=== PATIENT | female | born 1970 | race Hispanic/Latino ===

== ENCOUNTER 2018-04-18 08:59 | Observation (INO) | payer BC, OTHER ==
[~2018-04-18] VITALS: Ht 152.4 cm; Wt 59.0 kg
[2018-04-18] MEDS ORDERED: NAPROXEN500 MG PO (09:22)
[2018-04-18] MEDS ORDERED: METOPROLOL SUCC25 MG PO (09:22)
[2018-04-18] MEDS ORDERED: ALPRAZOLAM0.5 MG PO (09:22)
[2018-04-18] MEDS ORDERED: AMLODIPINE BESY10 MG PO (09:22)
[2018-04-18] MEDS ORDERED: ARMOUR THYROID90 MG PO (09:22)
[2018-04-18] MEDS ORDERED: SODIUM CHLORIDE 0.9% 1000ML 1,000 ML IV STA (09:39)
[2018-04-18] MEDS ORDERED: METOPROLOL TARTRATE INJ 1 MG/ML VIAL IV STA (09:39)
[2018-04-18 09:54] LABS: BASOPHILS % 0.4 % (0.0-1.0); EOSINOPHILS # (AUTO) 0.1 (0.0-0.4); EOSINOPHILS % 0.7 % (0.0-6.0); HEMATOCRIT 40.7 % (34.2-44.1); HEMOGLOBIN 14.1 g/dL (12.0-16.0); LYMPHOCYTES # (AUTO) 1.8 (1.0-3.2); LYMPHOCYTES % 19.2 % (18.0-39.1); MEAN CORPUSCULAR HEMOGLOBIN 31.3 pg (28-32); MEAN CORPUSCULAR HGB CONC 34.6 g/dL (31-35); MEAN CORPUSCULAR VOLUME 90.2 fL (81-99); MONOCYTES # (AUTO) 0.9 (0.2-0.8); MONOCYTES % 9.6 % (4.4-11.3); NEUTROPHILS # (AUTO) 6.5 (2.1-6.9); NEUTROPHILS % 69.3 % (38.7-80.0); PLATELET COUNT 270 x10e3/uL (140-360); RED BLOOD COUNT 4.51 x10e6/uL (3.6-5.1); RED CELL DISTRIBUTION WIDTH 12.2 % (11.7-14.4)
[2018-04-18 10:05] LABS: ALANINE AMINOTRANSFERASE 35 IU/L (0-55); ALBUMIN 4.4 g/dL (3.5-5.0); ALBUMIN/GLOBULIN RATIO 1.1 (0.8-2.0); ALKALINE PHOSPHATASE 92 IU/L (40-150); ANION GAP 17.6 mmol/L (8-16); BLOOD UREA NITROGEN 14 mg/dL (7-26); BUN/CREATININE RATIO 17 (6-25); CALCIUM 9.9 mg/dL (8.4-10.2); CARBON DIOXIDE 23 mmol/L (22-29); CHLORIDE 102 mmol/L (98-107); CREATINE KINASE 55 IU/L (29-168); CREATININE, SERUM 0.81 mg/dL (0.57-1.11); EST GLOMERULAR FILTRATION RATE > 60 ML/MIN (60-); GLUCOSE 88 mg/dL (74-118); POTASSIUM 3.6 mmol/L (3.5-5.1); SODIUM 139 mmol/L (136-145)
[2018-04-18 10:07] LABS: INR 1.05; PROTHROMBIN TIME 12.9 seconds (11.9-14.5)
[2018-04-18 10:08] LABS: PARTIAL THROMBOPLASTIN TIME 26.4 seconds (23.8-35.5)
[2018-04-18 10:25] LABS: FREE T4 (FREE THYROXINE) 1.05 ng/dL (0.9-1.8); THYROID STIMULATING HORMONE 4.425 uIU/mL (0.350-4.940)
--- NOTE | 2018-04-18 11:15 | Diagnostic Imaging Report ---
PROCEDURE: Frontal and lateral views of the chest. COMPARISON: None. INDICATIONS: CHEST PAIN FINDINGS: Lines/tubes: None. Lungs: The lungs are well inflated and clear. There is no evidence of pneumonia or pulmonary edema. Pleura: There is no pleural effusion or pneumothorax. Heart and mediastinum: The heart and the mediastinum are normal. Bones: No acute bony abnormality. IMPRESSION: 1. No acute cardiopulmonary disease. Dictated by: Joshua Gamboa M.D. on 04/18/2018 at 11:20 Electronically approved by: Joshua Gamboa M.D. on 04/18/2018 at 11:20
[2018-04-18] MEDS ORDERED: ASPIRIN 81 MG CHEW TAB PO ONE (13:00)
[2018-04-18] MEDS ORDERED: ALPRAZOLAM 0.5 MG TAB PO PRN ×3 (13:00→20:00)
[2018-04-18] MEDS ORDERED: SODIUM CHLORIDE 0.9% 1000ML 1,000 ML IV SCH (13:00)
[2018-04-18] MEDS ORDERED: METOPROLOL TARTRATE INJ 1 MG/ML VIAL IV PRN ×2 (13:00→20:15)
[2018-04-18 14:58] VITALS: BP 133/79
[2018-04-18] MEDS ORDERED: ASPIRIN81 MG PO (15:03)
--- NOTE | 2018-04-18 15:18 | Consultation ---
REFERRING PHYSICIAN: Dr. Kraig Banda, emergency department. DATE OF CONSULTATION: REASON FOR ADMISSION: Palpitations and chest pain. HISTORY OF PRESENT ILLNESS: Ms. Roe is a 48-year-old woman with dyslipidemia and mitochondrial mutation with previous evaluation in clinic. She has had occasional palpitations and atypical chest pain with evaluation done in the past. She presents with diarrhea and decreased p.o. intake this past week associated with increased frequency of palpitation multiple times per hour. Denies any lightheadedness or syncope. Denies any dyspnea. However, has noted associated chest pain which is described as moderate in severity and retrosternal, not radiating, lasting seconds at a time, recurrent and unaffected by exercise, meals or position. Given history of mitochondrial disorder with concern for possible cardiomyopathic crisis, she is being placed under observation at [facility] for the following 24 to 48 hours pending clinical response. When initially seen in the emergency department, she was quite tachycardiac into the 140s, sinus tachycardia at that time. On telemetry frequent PACs are observed. After administration of beta butch in the ER, her heart rate has improved to 80s to 100s, again with frequent PACs observed on the monitor. Twelve system review negative except for as noted above. ALLERGIES: SULFA AND LEVOFLOXACIN. PAST MEDICAL HISTORY: As per HPI. FAMILY HISTORY: Significant for mitochondrial disorder, unspecified, dyslipidemia and hypertension. SOCIAL HISTORY: No smoking, alcohol or drugs. PHYSICAL EXAM: VITAL SIGNS: Temperature 97.9, heart rate 101, respiratory rate 18, blood pressure 121/80, O2 sat 99% on room air. GENERAL: In no acute distress, alert. NECK: No JVD. CHEST: Clear to auscultation . CARDIOVASCULAR: Regular rate and rhythm. Normal S1 and S2. No S3, no S4 and no murmurs or rubs. ABDOMEN: Soft and nontender, nondistended. EXTREMITIES: No cyanosis, clubbing or edema. CARDIOVASCULAR MEDICATIONS: Reviewed and on thyroid supplementation, Xanax, metoprolol and amlodipine. LABS: Reviewed. White blood cells 9.4, hemoglobin 14.1, platelets 270,000. INR 1.05, PTT 26, PT 12.9. D-dimer normal at 0.25. Sodium 139, potassium 3.9, chloride 102, bicarbonate 23, BUN 14, creatinine 0.8, glucose 88, calcium 9.9, total bilirubin 1.7, mildly elevated. AST 22, ALT 35, alkaline phosphatase 92, CK 55, CK-MB 0.5. Troponin I less than 0.001. BNP 12.1. Total protein 8.4, albumin 4.4. TSH 4.4. Free T4 at 1.05. ASSESSMENT: 1. Frequent premature atrial contractions. 2. 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 3. Hypertension and dyslipidemia. 4. Gastroenteritis. RECOMMENDATIONS: 1. IV fluids. Increase beta butch availability p.r.n. and continue with current scheduled dose. 2. Avoid certain medications that have been associated with increased incidence of decompensated mitochondrial crisis including statins, metformin, limit alternative medication use at this point. 3. Keep on telemetry monitoring. 4. Obtain echocardiogram and serial cardiac enzymes. Job#: [id number] BALDO
[2018-04-18 15:34] VITALS: BP 133/79
[2018-04-18 15:35] VITALS: BP 133/79
[2018-04-18] MEDS ORDERED: ENOXAPARIN SOD INJ 40 MG/0.4 ML SYR SC SCH (17:00)
[2018-04-18 18:06] LABS: CREATINE KINASE MB 0.6 ng/mL (0-5.0)
[2018-04-18 19:20] VITALS: BP 124/80
[2018-04-18] MEDS: SODIUM CHLORIDE 0.9% 1000ML 1,000 ML IV SCH (20:00)
[2018-04-18 20:06] VITALS: BP 124/80
[2018-04-19] VITALS (10 sets, daily range): BP systolic 100–137; BP diastolic 61–79
[2018-04-19] MEDS: SODIUM CHLORIDE 0.9% 1000ML 1,000 ML IV SCH ×3 (01:02→19:57)
[2018-04-19 02:41] LABS: CREATINE KINASE MB 0.6 ng/mL (0-5.0)
[2018-04-19] MEDS: THYROID 60 MG TAB PO SCH (06:06)
[2018-04-19 06:29] LABS: ALANINE AMINOTRANSFERASE 22 IU/L (0-55); ALBUMIN 3.1 g/dL (3.5-5.0); ALBUMIN/GLOBULIN RATIO 1.1 (0.8-2.0); ALKALINE PHOSPHATASE 63 IU/L (40-150); ANION GAP 10.7 mmol/L (8-16); BLOOD UREA NITROGEN 7 mg/dL (7-26); BUN/CREATININE RATIO 11 (6-25); CARBON DIOXIDE 24 mmol/L (22-29); CHLORIDE 106 mmol/L (98-107); CHOL/HDL RATIO 2.6 (3.0-3.6); CHOLESTEROL 169 MD/DL (0-199); CREATININE, SERUM 0.66 mg/dL (0.57-1.11); EST GLOMERULAR FILTRATION RATE > 60 ML/MIN (60-); GLUCOSE 82 mg/dL (74-118); HDL CHOLESTEROL 65 MG/DL (40-60); LDL CHOLESTEROL 95 MG/DL (60-130); POTASSIUM 3.7 mmol/L (3.5-5.1); SODIUM 137 mmol/L (136-145); TRIGLYCERIDES 45 MG/DL (0-149)
[2018-04-19 06:34] LABS: CREATINE KINASE 52 IU/L (29-168)
--- NOTE | 2018-04-19 07:48 | History and Physical ---
PRIMARY CARE PHYSICIAN: Dr. Diggs CHIEF COMPLAINT: Chest palpitations. 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 Chest discomfort described by chest pressure, but no shortness of breath or dizziness. Due to history of mitochondrial trait with a predisposition to cardiomyopathy with chest discomfort did manifest. The patient decided to come to the hospital. She was admitted for further evaluation and management. The patient had an echocardiogram in 2017, which she states was normal. The patient did have an episode of diarrhea. 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 PAST SURGICAL HISTORY: Cholecystectomy, carpal tunnel release surgery, , partial hysterectomy. ALLERGIES: PER ELECTRONIC MEDICAL RECORD. FAMILY HISTORY/SOCIAL HISTORY: Patient is . She has 1 child. No alcohol, illicits or cigarettes. MEDICATIONS: Per electronic medical record. REVIEW OF SYSTEMS: Denies any dizziness, fever, chills, sweats, nausea, vomiting, diarrhea, headache, blurred vision, leg pain. PHYSICAL EXAMINATION VITAL SIGNS: Reviewed. GENERAL: A tired-appearing woman resting in bed. HEENT: Anicteric. Pupils respond to light. No oral lesions. CARDIOVASCULAR: Normal S1 and S2. LUNGS: Moderate breath sounds. ABDOMEN: Soft and nondistended. She has tenderness in the epigastrium. She also has tenderness in the midchest wall. EXTREMITIES: No edema or calf tenderness. NEUROLOGICAL: Alert and oriented times 3. Moving all extremities. LABS: Reviewed. MEDICATIONS: Reviewed. ASSESSMENT: A 48-year-old woman with: 1. Chest pain. 2. Hyperlipidemia. 3. Chest palpitations. 4. Acute gastroenteritis. 5. Hyperbilirubinemia. 6. Hypertension. 7. Anxiety disorder. 8. Hypothyroidism. PLAN 1. Cardiac enzymes negative times 3. Follow up echocardiogram. 2. Continue supportive care and IV rehydration. 3. Continue Lovenox 40 mg for prophylaxis. Also, use Pepcid. 4. Continue anxiolytics. 5. Continue beta butch. 6. Continue Synthroid. TSH appropriate. 7. Follow up echocardiogram. Job#: [id number] CA
[2018-04-19] MEDS: FAMOTIDINE 20 MG TAB PO SCH ×2 (08:02→17:39)
[2018-04-19] MEDS: AMLODIPINE BESYLATE 10 MG TAB PO SCH (08:53)
[2018-04-19] MEDS: METOPROLOL SUCCINATE 25 MG TAB XL PO SCH (08:54)
[2018-04-19] MEDS ORDERED: THYROID PORK 90 MG PO SCH (09:00)
[2018-04-19] MEDS ORDERED: METOPROLOL SUCCINATE 25 MG TAB XL PO SCH (09:00)
[2018-04-19] MEDS ORDERED: THYROID 60 MG TAB PO SCH (09:00)
[2018-04-19] MEDS ORDERED: AMLODIPINE BESYLATE 10 MG TAB PO SCH (09:00)
[2018-04-19] MEDS: ENOXAPARIN SOD INJ 40 MG/0.4 ML SYR SC SCH (17:39)
--- NOTE | 2018-04-19 22:32 | Progress Note ---
DATE: April 19, 2018 CARDIOLOGY PROGRESS NOTE SUBJECTIVE: Occasional palpitations persist. Patient's diarrhea has resolved, however. She does feel somewhat better, however, not back to baseline. On telemetry, predominantly in sinus rhythm, occasional sinus tachycardia, PACs are less frequent, no runs observed. OBJECTIVE: VITAL SIGNS: Reviewed and stable. GENERAL: In no acute distress, alert and active. NECK: No JVD. CHEST: Clear to auscultation. CARDIOVASCULAR: Regular rate and rhythm. Normal S1 and S2. No S3, no S4. No murmurs, no rubs. ABDOMEN: Soft, nontender, nondistended. EXTREMITIES: No cyanosis, clubbing, or edema. LAB WORK: Reviewed. TSH within normal limits. Echocardiogram reviewed, preserved left ventricular systolic function, no significant valvular abnormalities, no regional wall motion abnormalities, and normal chamber size. ASSESSMENT: 1. Premature atrial contractions. 2. History of mitochondrial mutation which is associated with cardiomyopathy. 3. Hypertension. 4. Dyslipidemia. 5. Anxiety. 6. Gastroenteritis. RECOMMENDATIONS: 1. Agree with IV hydration, transitioning to p.o. hydration. 2. Continue current cardiovascular medications including beta butch. 3. Keep on telemetry monitoring. 4. Anticipate discharge in the a.m. if continues to improve. 5. Follow up as outpatient in 4 to 8 weeks. Job#: [id number]
[2018-04-20] VITALS (7 sets, daily range): BP systolic 110–156; BP diastolic 63–76
[2018-04-20] MEDS: SODIUM CHLORIDE 0.9% 1000ML 1,000 ML IV SCH (04:25)
[2018-04-20] MEDS: FAMOTIDINE 20 MG TAB PO SCH ×2 (07:51→16:58)
[2018-04-20] MEDS: THYROID 60 MG TAB PO SCH (07:57)
[2018-04-20] MEDS ORDERED: FAMOTIDINE20 MG PO (08:31)
[2018-04-20] MEDS: AMLODIPINE BESYLATE 10 MG TAB PO SCH (09:15)
[2018-04-20] MEDS: METOPROLOL SUCCINATE 25 MG TAB XL PO SCH (09:16)
[2018-04-20] MEDS: ENOXAPARIN SOD INJ 40 MG/0.4 ML SYR SC SCH (16:58)
--- NOTE | 2018-04-20 18:52 | Progress Note ---
DATE: April 20, 2018 CARDIOLOGY PROGRESS NOTE SUBJECTIVE: Feels better overall. Diarrhea resolved. Denies chest pain or shortness of breath. Palpitations decreased. No other complaints. OBJECTIVE: VITAL SIGNS: Reviewed and stable. GENERAL: No acute distress, alert and active. NECK: No JVD. CHEST: Clear to auscultation. CARDIOVASCULAR: Regular rate and rhythm. Normal S1 and S2. No S3 or S4. No murmurs or rubs. ABDOMEN: Soft, nontender. EXTREMITIES: No edema. Warm distal extremities. LAB WORK: Reviewed. TELEMETRY: Reviewed. Normal sinus rhythm with rare PACs. No arrhythmias. No PVCs. ASSESSMENT 1. Premature atrial contractions. 2. Mitochondrial disorder at risk for cardiomyopathy/acute heart failure episodes. 3. Gastroenteritis. 4. Hypertension. 5. Dyslipidemia. RECOMMENDATIONS: Continue current cardiovascular medications. Okay to discharge from a cardiac standpoint. Outpatient followup advised in 3-4 weeks. If symptoms worsen, can consider outpatient telemetry monitoring. Alarm signs discussed with the patient. Patient advised to maintain adequate hydration. Job#: [id number]
[2018-04-21] MEDS ORDERED: THYROID 60 MG TAB PO SCH (07:30)
== END 2018-04-20 19:06 | disposition home or self-care (01) ==
LOC: ER 08:59 → ERHOLD 12:53 → UNDOADMOB 12:53 → ERHOLD 14:24 → IMCU 14:26
PROVIDERS: ADMIT Internal Medicine; ATTEND Internal Medicine
DX: I49.1 Atrial premature depolarization (principal); R00.2 Palpitations; I10 Essential (primary) hypertension; G71.3 Mitochondrial myopathy, not elsewhere classified; E03.9 Hypothyroidism, unspecified; F41.9 Anxiety disorder, unspecified; E78.5 Hyperlipidemia, unspecified; K52.9 Noninfective gastroenteritis and colitis, unspecified; E80.6 Other disorders of bilirubin metabolism; Z88.1 Allergy status to other antibiotic agents; Z88.2 Allergy status to sulfonamides
CPT/HCPCS: 36415; 71046; 80053 ×2; 80061; 82550 ×2; 82553 ×2; 83036; 83880; 84439; 84443; 84484 ×2; 85025; 85379; 85610; 85730; 93005; 93306; 99284; G0378 ×3; J1650 ×2; J7030 ×3

== ENCOUNTER 2020-03-08 15:47 | Emergency (ER) | payer OTHER ==
[~2020-03-08] VITALS: Ht 152.4 cm; Wt 54.4 kg
[~2020-03-08 15:47] MED LIST: ALPRAZOLAM0.5 MG PO; AMLODIPINE BESY10 MG PO; ARMOUR THYROID90 MG PO; ASPIRIN81 MG PO; FAMOTIDINE20 MG PO; METOPROLOL SUCC25 MG PO; NAPROXEN500 MG PO
[2020-03-08] MEDS ORDERED: DIPHENHYDRAMINE HCL INJ 50 MG/ML VIAL IV PRN (16:15)
[2020-03-08] MEDS ORDERED: METOCLOPRAMIDE HCL 10 MG/2ML VIAL IV ONE (16:15)
[2020-03-08 17:11] LABS: BASOPHILS % 0.4 % (0.0-1.0); EOSINOPHILS % 0.4 % (0.0-6.0); HEMATOCRIT 43.7 % (34.2-44.1); LYMPHOCYTES # (AUTO) 1.7 (1.0-3.2); LYMPHOCYTES % 15.9 % (18.0-39.1); MEAN CORPUSCULAR HEMOGLOBIN 29.7 pg (28-32); MEAN CORPUSCULAR VOLUME 92.6 fL (81-99); MONOCYTES % 9.5 % (4.4-11.3); NEUTROPHILS % 73.2 % (38.7-80.0); PLATELET COUNT 246 x10e3/uL (140-360); RED BLOOD COUNT 4.72 x10e6/uL (3.6-5.1); RED CELL DISTRIBUTION WIDTH 12.7 % (11.7-14.4)
[2020-03-08 17:29] LABS: ALANINE AMINOTRANSFERASE 57 IU/L (0-55); ALBUMIN 4.5 g/dL (3.5-5.0); ALBUMIN/GLOBULIN RATIO 1.2 (0.8-2.0); ALKALINE PHOSPHATASE 96 IU/L (40-150); BLOOD UREA NITROGEN 14 mg/dL (7-26); BUN/CREATININE RATIO 16 (6-25); CALCIUM 9.8 mg/dL (8.4-10.2); CARBON DIOXIDE 31 mmol/L (22-29); CHLORIDE 100 mmol/L (98-107); CREATINE KINASE 44 IU/L (29-168); CREATININE, SERUM 0.86 mg/dL (0.57-1.11); EST GLOMERULAR FILTRATION RATE > 60 ML/MIN (60-); GLUCOSE 113 mg/dL (74-118); SODIUM 141 mmol/L (136-145)
[2020-03-08] MEDS ORDERED: SODIUM CHLORIDE 0.9% 500ML 500 ML ONE (17:35)
--- NOTE | 2020-03-08 17:43 | Emergency Department Note ---
History of Present Illnes History of Present Illness Chief Complaint: General Medicine Complaints History of Present Illness This is a 49 year old female arrives to the ED with complaints of headache and dizziness for several months. Patient states no one has gotten to the bottom of why she is having headaches.. Chief Complaint Comment PATIENT IN FROM HOME WITH COMPLAINTS OF DIZZINESS AND HEADACHE X 1 WEEK; STATES SHE HAS HAD PAIN AND PRESSURE IN BOTH OF HER EARS SINCE NOVEMBER - SHE HAS BEEN TO MULTIPLE PHYSICIANS AND SPECIALISTS BUT CANNOT FIND OUT AN ANSWER. PATIENT WITH HISTORY OF MIGRAINES. PATIENT ALERT AND ORIENTED, RESP EVEN AND NONLABORED, APPEARS IN NO DISTRESS, RATES PAIN TO BASE OF HEAD/NECK 03/28 Historian: Patient Arrival Mode: Car Severity: mild Onset quality: gradual Duration (how long): month(s) Relieving factors: none Exacerbating factors: none Past Medical/Family History Physician Review I have reviewed the patient's past medical and family history. Any updates have been documented here. Past Medical History Recent Fever: No Clinical Suspicion of Infectio: No New/Unexplained Change in Ment: No Past Medical History: Hypertension, Hypothyroidism, UTI's, Migraines, Anxiety, Hyperlipedemia Past Surgical History: Cholecysctectomy, Hysterectomy, Other Surgery: R Carpal tunnel PARTIAL HYSTERECTOMY Social History Smoking Cessation: Never Smoker Alcohol Use: Occasional Any Illegal Drug Use: No TB Exposure/Symptoms: No Physically hurt or threatened: No Family History Family history of heart diseas: No Other Last Tetanus: Unknown Any Pre-Existing Lines (PICC,: No Is patient up to date on immun: Yes Last Flu: UTD Last Pneumovax: none Review of Systems Review of Systems Constitutional: Reports as per HPI EENTM: Reports no symptoms Cardiovascular: Reports no symptoms Respiratory: Reports no symptoms Gastrointestinal: Reports no symptoms Genitourinary: Reports no symptoms Musculoskeletal: Reports no symptoms Integumentary: Reports no symptoms Neurological: Reports as per HPI, Reports headache Psychological: Reports no symptoms Endocrine: Reports no symptoms Hematological/Lymphatic: Reports no symptoms Physical Exam Related Data Allergies: Coded Allergies: Sulfa (Sulfonamide Antibiotics) (Verified Allergy, Mild, 03/08/20) levofloxacin (Verified Allergy, Unknown, 03/08/20) Triage Vital Signs Vital Signs Date Time Temp Pulse Resp B/P (MAP) Pulse Ox O2 Delivery O2 Flow Rate FiO2 03/08/20 16:02 96.5 99 16 143/98 100 Vital signs reviewed: Yes Physical Exam CONSTITUTIONAL Constitutional: Present well-developed, Present well-nourished HENT HENT: Present normocephalic, Present atraumatic, Present oropharynx clear/moist, Present nose normal HENT L/R: Present left ext ear normal, Present right ext ear normal EYES Eyes: Reports PERRL, Reports conjunctivae normal NECK Neck: Present ROM normal PULMONARY Pulmonary: Present effort normal, Present breath sounds normal CARDIOVASCULAR Cardiovascular: Present regular rhythm, Present heart sounds normal, Present capillary refill normal, Present normal rate GASTROINTESTINAL Abdominal: Present soft, Present nontender, Present bowel sounds normal GENITOURINARY Genitourinary: Present exam deferred SKIN Skin: Present warm, Present dry MUSCULOSKELETAL Musculoskeletal: Present ROM normal NEUROLOGICAL Neurological: Present alert, Present oriented x 3, Present no gross motor or sensory deficits PSYCHOLOGICAL Psychological: Present mood/affect normal, Present judgement normal Results Laboratory Result Diagram: 03/08/20 9960 Laboratory Laboratory Tests Test 03/08/20 16:53 White Blood Count 10.87 x10e3/uL (4.8-10.8) Red Blood Count 4.72 x10e6/uL (3.6-5.1) Hemoglobin 14.0 g/dL (12.0-16.0) Hematocrit 43.7 % (34.2-44.1) Mean Corpuscular Volume 92.6 fL (81-99) Mean Corpuscular Hemoglobin 29.7 pg (28-32) Mean Corpuscular Hemoglobin Concent 32.0 g/dL (31-35) Red Cell Distribution Width 12.7 % (11.7-14.4) Platelet Count 246 x10e3/uL (140-360) Neutrophils (%) (Auto) 73.2 % (38.7-80.0) Lymphocytes (%) (Auto) 15.9 % (18.0-39.1) Monocytes (%) (Auto) 9.5 % (4.4-11.3) Eosinophils (%) (Auto) 0.4 % (0.0-6.0) Basophils (%) (Auto) 0.4 % (0.0-1.0) Neutrophils # (Auto) 8.0 (2.1-6.9) Lymphocytes # (Auto) 1.7 (1.0-3.2) Monocytes # (Auto) 1.0 (0.2-0.8) Eosinophils # (Auto) 0.0 (0.0-0.4) Basophils # (Auto) 0.0 (0.0-0.1) Absolute Immature Granulocyte (auto 0.06 x10e3/uL (0-0.1) Human Chorionic Gonadotropin, Qual Negative (NEGATIVE) Lab results reviewed: Yes Laboratory comments Laboratory Tests Test 03/08/20 16:53 White Blood Count 10.87 x10e3/uL (4.8-10.8) Red Blood Count 4.72 x10e6/uL (3.6-5.1) Hemoglobin 14.0 g/dL (12.0-16.0) Hematocrit 43.7 % (34.2-44.1) Mean Corpuscular Volume 92.6 fL (81-99) Mean Corpuscular Hemoglobin 29.7 pg (28-32) Mean Corpuscular Hemoglobin Concent 32.0 g/dL (31-35) Red Cell Distribution Width 12.7 % (11.7-14.4) Platelet Count 246 x10e3/uL (140-360) Neutrophils (%) (Auto) 73.2 % (38.7-80.0) Lymphocytes (%) (Auto) 15.9 % (18.0-39.1) Monocytes (%) (Auto) 9.5 % (4.4-11.3) Eosinophils (%) (Auto) 0.4 % (0.0-6.0) Basophils (%) (Auto) 0.4 % (0.0-1.0) Neutrophils # (Auto) 8.0 (2.1-6.9) Lymphocytes # (Auto) 1.7 (1.0-3.2) Monocytes # (Auto) 1.0 (0.2-0.8) Eosinophils # (Auto) 0.0 (0.0-0.4) Basophils # (Auto) 0.0 (0.0-0.1) Absolute Immature Granulocyte (auto 0.06 x10e3/uL (0-0.1) Sodium Level 141 mmol/L (136-145) Potassium Level 4.0 mmol/L (3.5-5.1) Chloride Level 100 mmol/L (98-107) Carbon Dioxide Level 31 mmol/L (22-29) Anion Gap 14.0 mmol/L (8-16) Blood Urea Nitrogen 14 mg/dL (7-26) Creatinine 0.86 mg/dL (0.57-1.11) Estimat Glomerular Filtration Rate > 60 ML/MIN (60-) BUN/Creatinine Ratio 16 (6-25) Glucose Level 113 mg/dL (74-118) Calcium Level 9.8 mg/dL (8.4-10.2) Total Bilirubin 0.3 mg/dL (0.2-1.2) Aspartate Amino Transf (AST/SGOT) 26 IU/L (5-34) Alanine Aminotransferase (ALT/SGPT) 57 IU/L (0-55) Alkaline Phosphatase 96 IU/L (40-150) Creatine Kinase 44 IU/L (29-168) Creatine Kinase MB 0.10 ng/mL (0-5.0) Troponin I < 0.001 ng/mL (0-0.300) Total Protein 8.3 g/dL (6.5-8.1) Albumin 4.5 g/dL (3.5-5.0) Globulin 3.8 g/dL (2.3-3.5) Albumin/Globulin Ratio 1.2 (0.8-2.0) Human Chorionic Gonadotropin, Qual Negative (NEGATIVE) Assessment & Plan Medical Decision Making MDM 49-year-old well-appearing female arrived to the ED with complaints of posterior cervical headache, denies any weakness no evidence of any neuro deficits on exam. Patient immature with steady gait. CT angiogram ordered to ensure no posterior infarct or aneurysm. Case discussed and signed out to Dr. Roach to follow-up CT angiogram and dispo patient accordingly Assessment & Plan Final Impression: (1) Headache Depart Disposition: ADMITTED Last Vital Signs Date Time Temp Pulse Resp B/P (MAP) Pulse Ox O2 Delivery O2 Flow Rate FiO2 03/08/20 16:02 96.5 99 16 143/98 100 Home Meds Active Scripts Famotidine (FAMOTIDINE) 20 Mg Tab, 20 MG PO BIDAC for 30 Days, TAB Prov:THOMAS ARAIZA MD 04/20/18 Reported Medications Aspirin (ASPIRIN) 81 Mg Tab.chew, 1 TAB PO DAILY 04/18/18 Thyroid,Pork (ARMOUR THYROID) 90 Mg Tablet, 90 MG PO DAILY, #30 04/18/18 Metoprolol Succinate (METOPROLOL SUCCINATE) 25 Mg Tab.er.24h, 25 MG PO DAILY, #30 04/18/18 Amlodipine Besylate (AMLODIPINE BESYLATE) 10 Mg Tablet, 10 MG PO DAILY, #30 04/18/18 Naproxen (NAPROXEN) 500 Mg Tablet, 1 TAB PO BID PRN for PAIN, #60 04/18/18 Alprazolam (ALPRAZOLAM) 0.5 Mg Tablet, 0.5 TAB PO PRN PRN for ANXIETY, #60 04/18/18 Medications in the ED Metoclopramide HCl 10 mg ONCE ONCE IV Last administered on 03/08/20at 17:18; Admin Dose 10 MG; Start 03/08/20 at 16:15; Stop 03/08/20 at 16:16 Diphenhydramine HCl 25 mg ONCE PRN IV ITCHING Last administered on 03/08/20at 17:18; Admin Dose 25 MG; Start 03/08/20 at 16:15; Stop 04/07/20 at 16:14 Sodium Chloride [address] [facility] ONCE .ROUTE ; Start 03/08/20 at 17:35; Stop 03/08/20 at 17:30; Status PAULINE REY DO Mar 08, 2020 18:00
--- NOTE | 2020-03-08 18:48 | Diagnostic Imaging Report ---
Exam: Head CT without contrast History: Dizziness, headache Comparison studies: None Technique: Axial images were obtained from the skull base to the vertex. Coronal and sagittal images reconstructed from the axial data. Dose modulation, iterative reconstruction, and/or weight based adjustment of the mA/kV was utilized to reduce the radiation dose to as low as reasonably achievable. Radiation dose: Total DLP: 921.4 mGy*cm. Estimated effective dose: DLP x 0.015 Intravenous contrast: None Findings: Scalp: No abnormalities. Bones: No fractures, blastic or lytic lesions. Brain sulci: Appropriate for age. Ventricles: Normal in size and configuration. No hydrocephalus. Extra-axial spaces: No masses, no fluid collection. Parenchyma: No abnormal densities. No masses, acute hemorrhage, acute or chronic vascular insults. Sellar/suprasellar region: No abnormalities. Craniocervical junction: Patent foramen magnum. No Chiari one malformation. Included paranasal sinuses: Clear. Middle ear mastoid cavities: Clear. IMPRESSION: No acute abnormalities. Signed by: Dr. Leo Sanchez M.D. on 03/08/2020 6:44 PM
== END 2020-03-08 19:51 | disposition home or self-care (01) ==
LOC: ER 15:47
DX: R51 Headache (principal); R42 Dizziness and giddiness; I10 Essential (primary) hypertension; E03.9 Hypothyroidism, unspecified; E78.5 Hyperlipidemia, unspecified; F41.9 Anxiety disorder, unspecified
CPT/HCPCS: 36415; 70450; 80053; 82550; 82553; 84484; 84702; 85025; 99284; J1200; J2765; J7040